=== PATIENT | male | born 1955 | race African-American/Black ===

== ENCOUNTER 2016-03-03 09:32 | Emergency (ER) | payer OTHER ==
[2016-03-03 09:40] VITALS: TEMP 98.6; BMI 28.9
[2016-03-03] MEDS ORDERED: HYDROmorphone 1 MG INJECTION IV ONE (10:37)
[2016-03-03] MEDS ORDERED: NS 1,000 ML IV ONE (10:37)
[2016-03-03] MEDS ORDERED: ONDANSETRON HCL 4 MG/2 ML VIAL IV ONE (10:37)
[2016-03-03] MEDS ORDERED: Pharmacy Review for Metformin - IV Contrast Given SCH (11:00)
[2016-03-03 11:08] LABS: AUTOMATED BASOPHIL 1.3 % (0-2); AUTOMATED EOSINOPHIL 3.7 % (0-5); AUTOMATED LYMPH 24.7 % (17-44); AUTOMATED MONOCYTE 8.7 % (3-10); AUTOMATED NEUTROPHIL 61.6 % (45-76); MPV 8.4 fL (7.4-10.4)
[2016-03-03 11:17] LABS: LEUKOCYTES/URINE NEG (NEGATIVE); NITRITE/URINE NEG (NEGATIVE); RBC/URINE 0-2 (0-2); URINE OCCULT BLOOD NEG (NEG/TRACE); WBC/URINE 0-2 (0-2)
[2016-03-03 11:18] LABS: BLOOD UREA NITROGEN 9 MG/DL (9-20); CALCIUM 9.4 MG/DL (8.4-10.2); CALCULATED OSMOLALITY 268 MOs/Kg (270-290); CHLORIDE 104 mEq/L (98-107); GLUCOSE 100 MG/DL (70-99); SODIUM LEVEL 140 mEq/L (137-146); TOTAL PROTEIN 7.7 G/DL (6.3-8.2)
--- NOTE | 2016-03-03 12:14 | DIRPT ---
CLINICAL DATA: Periumbilical pain for 1 day EXAM: CT ABDOMEN AND PELVIS WITH CONTRAST TECHNIQUE: Multidetector CT imaging of the abdomen and pelvis was performed using the standard protocol following bolus administration of intravenous contrast. CONTRAST: 100 mL Isovue 370 nonionic COMPARISON: June 05, 2015 ; September 20, 2011 FINDINGS: Lower chest: There is mild bibasilar lung atelectatic change. Lung bases otherwise are clear. Hepatobiliary: There is an apparent hemangioma in the medial segment of the left lobe of the liver measuring 1.2 x 1.2 cm. This lesion is unchanged compared to prior study. No new liver lesions are identified. Gallbladder wall is not appreciably thickened. There is no biliary duct dilatation. Pancreas: No pancreatic mass or inflammatory focus. Spleen: No splenic lesions are identified. Adrenals/Urinary Tract: Adrenals appear normal bilaterally. Kidneys bilaterally show no mass or hydronephrosis on either side. There is no renal or ureteral calculus apparent on either side. The urinary bladder is midline with wall thickness within normal limits. Stomach/Bowel: There is no bowel wall or mesenteric thickening. No bowel obstruction. No free air or portal venous air. Scattered diverticula are noted throughout the colon without diverticulitis. Vascular/Lymphatic: There is atherosclerotic calcification in the aorta and common iliac arteries bilaterally. There is slight peripheral thrombus in the aorta. There is no demonstrable abdominal aortic aneurysm. The major mesenteric vessels appear patent. There is no demonstrable adenopathy in the abdomen or pelvis. Reproductive: Prostate and seminal vesicles normal in size and contour. There are several small prostatic calculi. Other: Appendix is absent. There is again noted a mass just superior to the left inguinal region anteriorly measuring 3.1 x 2.2 x 1.5 cm. This mass is actually marginally smaller compared to the previous study. It is well-circumscribed and contains calcification. No other similar mass is seen in the abdomen or pelvis. There is no ascites or abscess in the abdomen or pelvis. Musculoskeletal: There is degenerative change in the lumbar spine. There are no blastic or lytic bone lesions. No intramuscular or abdominal wall lesions are apparent. IMPRESSION: There is a stable mass just superior to the left inguinal region anteriorly, currently measuring 3.1 x 2.2 x 1.5 cm. This lesion is unchanged in contour and contains calcification, unchanged from prior study. Note that it was not present on earlier study from 2011. Question partially calcified hematoma given that it appears marginally smaller compared to the previous study. Particular attention to this area on subsequent evaluations is warranted. Appendix absent. No bowel wall thickening or bowel obstruction. No abscess. No renal or ureteral calculus. No hydronephrosis. Small stable liver hemangioma. Electronically Signed By: Júnior Teague III, M.D. On: 03/03/2016 12:12
--- NOTE | 2016-03-03 12:20 | EDPRACDOC ---
- General Information Chief Complaint: Abdominal Pain Stated Complaint: ABD/ BACK PAIN Time Seen by Provider: 03/03/16 10:44 Mode Of Arrival: Car Home Medications: Home Medications Glipizide [Glucotrol] 10 mg PO BID(TK) 05/15/13 Aspirin [Aspirin EC] 81 mg PO DAILY 08/30/13 Lisinopril 40 mg PO DAILY 08/30/13 Tramadol HCl 50 mg PO Q6 PRN #10 tablet 03/03/16 Allergies/Adverse Reactions: Allergies Allergy/AdvReac Type Severity Reaction Status Date / Time promethazine HCl Allergy Intermediate Difficulty Verified 03/03/16 09:40 [From Phenergan] Breathing diphenhydramine HCl Allergy Mild Itching Verified 03/03/16 09:40 [From Benadryl] - History of Present Illness Onset: TODAY HPI: C/o sudden onset back, abdo and suprapubic pain today. Denies testicle or penis pain, fever, N/V/D, cp, sob, chnages in urine or BM. Med hx = DM, HTN. Surgical hx = appy, shoulder, back. Pain Location: Reports: Diffuse, Periumbilical, Suprapubic Pain Context: Reports: Spontaneous Pain Severity: Moderate Pain Quality: Reports: Cramping Pain Radiation: Reports: Back Adult Abdominal History: Reports: Abdominal Surgery Modifying Factors: improves with: Nothing Oral Intake: Normal Urinary Output: Normal ED Past Medical History - History Reviewed Yes Nurses notes reviewed and agree except as marked - Patient Medical History Cardiac History: Reports: Hypertension, Cardiac Catheterization, Hypercholesterolemia Respiratory History: Reports: Asthma, Chronic Bronchitis GI/ History: Reports: Gastroesophageal Reflux Musculoskeletal History: Reports: Arthritis (joints), Osteoarthritis Psychological History: Denies: Depression Systemic History: Reports: Diabetes (NIDDM) Surgical History: Reports: Cardiac Catheterization - Family Medical History Reports: Hypertension (mother), Diabetes (mother), Cancer (brother) - Social Medical History Smoking Status: Light tobacco smoker (less than 5/day) EDM Review of Systems - Review of Systems ROS Negative Except as Marked: Yes All systems reviewed and were negative except as marked Gastrointestinal: Pain Musculoskeletal: Back (mid back pain) - Physical Exam Constitutional: No apparent distress, Alert Oriented to: Time, Person, Place Last recorded Vital Signs: Last Vital Signs Temp 98.6 F 03/03/16 09:37 Pulse 83 03/03/16 12:58 Resp 18 03/03/16 12:58 BP 113/76 03/03/16 12:58 Pulse Ox 95 03/03/16 12:58 Oxygen Pulse Oxygen Saturation 95 O2 Device Room Air Oxygen Flow Rate Fraction of Inspired Oxygen ( FIO2) - HEENT Head: Normal Eye Exam: negative: Conjunctival Injection, Scleral Icterus Oropharynx: negative: Drooling TMJ: Normal Nose: No Symptoms Reported Neck: Normal - Respiratory/Cardiovascular Respiratory: Normal - CTA Cardiovascular: Normal - GI Auscultation: Normal Palpation: Normal Tenderness: Diffuse, Moderate, RUQ, LUQ, RLQ, LLQ, Epigastric, Suprapubic, Periumbilical Madrid's Sign: Negative - Musculoskeletal Back: Normal Extremities: Normal - Integumentary Skin: Normal - Neurologic Mood Description: Normal Thought: Coherent Perception: Normal - Results 03/03/16 10:55 03/03/16 10:55 WBC 7.5 xk/uL (3.8-10.8) 03/03/16 10:55 RBC 4.99 xM/uL (4.70-6.10) 03/03/16 10:55 Hgb 14.4 g/dL (14.0-18.0) 03/03/16 10:55 Hct 43.2 % (42-52) 03/03/16 10:55 MCV 87 fL (80-94) 03/03/16 10:55 MCH 28.9 pg (27-32) 03/03/16 10:55 MCHC 33.4 g/dl (33-36) 03/03/16 10:55 RDW 13.7 % (11.5-14.5) 03/03/16 10:55 Plt Count 140 xk/uL (130-400) 03/03/16 10:55 MPV 8.4 fL (7.4-10.4) 03/03/16 10:55 Neut % (Auto) 61.6 % (45-76) 03/03/16 10:55 Lymph % (Auto) 24.7 % (17-44) 03/03/16 10:55 [place] % (Auto) 8.7 % (3-10) 03/03/16 10:55 Eos % (Auto) 3.7 % (0-5) 03/03/16 10:55 Baso % (Auto) 1.3 % (0-2) 03/03/16 10:55 Absolute Neuts (auto) 4.58 xk/uL (1.7-8.2) 03/03/16 10:55 Absolute Lymphs (auto) 1.80 xk/uL (0.65-4.75) 03/03/16 10:55 Sodium 140 mEq/L (137-146) 03/03/16 10:55 Potassium 4.2 mEq/L (3.5-5.1) 03/03/16 10:55 Chloride 104 mEq/L (98-107) 03/03/16 10:55 Carbon Dioxide 29 mMOL/L (22-33) 03/03/16 10:55 Anion Gap 11 mEq/L (8-16) 03/03/16 10:55 BUN 9 MG/DL (9-20) 03/03/16 10:55 Creatinine 0.80 MG/DL (0.66-1.25) 03/03/16 10:55 Estimated GFR (MDRD) > 60 mL/min (>=60) 03/03/16 10:55 Glucose 100 MG/DL (70-99) H 03/03/16 10:55 Calculated Osmolality 268 MOs/Kg (270-290) L 03/03/16 10:55 Calcium 9.4 MG/DL (8.4-10.2) 03/03/16 10:55 Total Bilirubin 0.6 MG/DL (0.2-1.3) 03/03/16 10:55 AST 25 IU/L (17-59) 03/03/16 10:55 ALT 37 IU/L (21-72) 03/03/16 10:55 Alkaline Phosphatase 62 IU/L (50-160) 03/03/16 10:55 Total Protein 7.7 G/DL (6.3-8.2) 03/03/16 10:55 Albumin 4.2 G/DL (3.5-5.0) 03/03/16 10:55 Lipase 59 U/L (23-300) 03/03/16 10:55 Urine Color Yellow 03/03/16 11:00 Urine Clarity Clear 03/03/16 11:00 Urine pH 8.0 (5.0-8.0) 03/03/16 11:00 Ur Specific [place] 1.010 (1.003-1.035) 03/03/16 11:00 Urine Protein Neg (NEG/TRACE) 03/03/16 11:00 Urine Glucose (UA) Neg (NEGATIVE) 03/03/16 11:00 Urine Ketones Neg (NEGATIVE) 03/03/16 11:00 Urine Occult Blood Neg (NEG/TRACE) 03/03/16 11:00 Urine Nitrite Neg (NEGATIVE) 03/03/16 11:00 Urine Bilirubin Neg (NEGATIVE) 03/03/16 11:00 Urine Urobilinogen <2.0 MG/DL (0-1) 03/03/16 11:00 Ur Leukocyte Esterase Neg (NEGATIVE) 03/03/16 11:00 Urine RBC 0-2 (0-2) 03/03/16 11:00 Urine WBC 0-2 (0-2) 03/03/16 11:00 Lab Results 03/03/16 03/03/16 03/03/16 11:00 10:55 10:55 WBC 7.5 RBC 4.99 Hgb 14.4 Hct 43.2 MCV 87 MCH 28.9 MCHC 33.4 RDW 13.7 Plt Count 140 MPV 8.4 Neut % (Auto) 61.6 Lymph % (Auto) 24.7 [place] % (Auto) 8.7 Eos % (Auto) 3.7 Baso % (Auto) 1.3 Absolute Neuts (auto) 4.58 Absolute Lymphs (auto) 1.80 Sodium 140 Potassium 4.2 Chloride 104 Carbon Dioxide 29 Anion Gap 11 BUN 9 Creatinine 0.80 Estimated GFR (MDRD) > 60 Glucose 100 H Calculated Osmolality 268 L Calcium 9.4 Total Bilirubin 0.6 AST 25 ALT 37 Alkaline Phosphatase 62 Total Protein 7.7 Albumin 4.2 Lipase 59 Urine Color Yellow Urine Clarity Clear Urine pH 8.0 Ur Specific [place] 1.010 Urine Protein Neg Urine Glucose (UA) Neg Urine Ketones Neg Urine Occult Blood Neg Urine Nitrite Neg Urine Bilirubin Neg Urine Urobilinogen <2.0 Ur Leukocyte Esterase Neg Urine RBC 0-2 Urine WBC 0-2 - Diagnostic Imaging Abdomen Image interpreted by: Radiologist 03/03/16 12:18 EXAM: CT ABDOMEN AND PELVIS WITH CONTRAST TECHNIQUE: Multidetector CT imaging of the abdomen and pelvis was performed using the standard protocol following bolus administration of intravenous contrast. CONTRAST: 100 mL Isovue 370 nonionic COMPARISON: June 05, 2015 ; September 20, 2011 FINDINGS: Lower chest: There is mild bibasilar lung atelectatic change. Lung bases otherwise are clear. Hepatobiliary: There is an apparent hemangioma in the medial segment of the left lobe of the liver measuring 1.2 x 1.2 cm. This lesion is unchanged compared to prior study. No new liver lesions are identified. Gallbladder wall is not appreciably thickened. There is no biliary duct dilatation. Pancreas: No pancreatic mass or inflammatory focus. Spleen: No splenic lesions are identified. Adrenals/Urinary Tract: Adrenals appear normal bilaterally. Kidneys bilaterally show no mass or hydronephrosis on either side. There is no renal or ureteral calculus apparent on either side. The urinary bladder is midline with wall thickness within normal limits. Stomach/Bowel: There is no bowel wall or mesenteric thickening. No bowel obstruction. No free air or portal venous air. Scattered diverticula are noted throughout the colon without diverticulitis. Vascular/Lymphatic: There is atherosclerotic calcification in the aorta and common iliac arteries bilaterally. There is slight peripheral thrombus in the aorta. There is no demonstrable abdominal aortic aneurysm. The major mesenteric vessels appear patent. There is no demonstrable adenopathy in the abdomen or pelvis. Reproductive: Prostate and seminal vesicles normal in size and contour. There are several small prostatic calculi. Other: Appendix is absent. There is again noted a mass just superior to the left inguinal region anteriorly measuring 3.1 x 2.2 x 1.5 cm. This mass is actually marginally smaller compared to the previous study. It is well-circumscribed and contains calcification. No other similar mass is seen in the abdomen or pelvis. There is no ascites or abscess in the abdomen or pelvis. Musculoskeletal: There is degenerative change in the lumbar spine. There are no blastic or lytic bone lesions. No intramuscular or abdominal wall lesions are apparent. IMPRESSION: There is a stable mass just superior to the left inguinal region anteriorly, currently measuring 3.1 x 2.2 x 1.5 cm. This lesion is unchanged in contour and contains calcification, unchanged from prior study. Note that it was not present on earlier study from 2011. Question partially calcified hematoma given that it appears marginally smaller compared to the previous study. Particular attention to this area on subsequent evaluations is warranted. Appendix absent. No bowel wall thickening or bowel obstruction. No abscess. No renal or ureteral calculus. No hydronephrosis. Small stable liver hemangioma. Electronically Signed By: Júnior Teague III, M.D. On: 03/03/2016 12:12 Decision Time to Discharge: 12:23 - Departure Disposition: Home Condition: Stable Final Diagnosis: Abdominal pain Qualifiers: Abdominal location: unspecified location Qualified Code(s): R10.9 - Unspecified abdominal pain Back pain Qualifiers: Back pain location: back pain in unspecified location Chronicity: acute Back pain laterality: bilateral Qualified Code(s): M54.9 - Dorsalgia, unspecified Instructions: Non-pharmacological Pain Management Therapies for Adults (GEN), Abdominal Pain (ED), Core Strengthening Exercises (GEN), Back Pain Education/Counseling Given To: Patient Education/Counseling Given Regarding: Diagnosis, Treatment, Prognosis, Follow Up Referrals: Therese Harkins MD [Primary Care Provider] - One Week Prescriptions: New Tramadol HCl 50 mg PO Q6 PRN #10 tablet PRN Reason: Pain No Action Glipizide [Glucotrol] 10 mg PO BID(TK) Aspirin [Aspirin EC] 81 mg PO DAILY Lisinopril 40 mg PO DAILY Forms: Excuse Note Additional Instructions: Follow up with primary care for abdominal and back pain. Take tramadol for pain. Return to ED for any new or worsening symptoms.
[2016-03-03 13:00] VITALS: BP 113/76; PULSE 83
== END 2016-03-03 12:58 | disposition home or self-care (01) ==
LOC: ED 09:32
DX: R10.9 Unspecified abdominal pain (principal); M54.9 Dorsalgia, unspecified; I10 Essential (primary) hypertension; E78.00 Pure hypercholesterolemia, unspecified; K21.9 Gastro-esophageal reflux disease without esophagitis; E11.9 Type 2 diabetes mellitus without complications; F17.210 Nicotine dependence, cigarettes, uncomplicated; Z79.82 Long term (current) use of aspirin; Z79.899 Other long term (current) drug therapy
CPT/HCPCS: 36415; 74177; 80053; 81001; 83690; 85025; 96361; 96374; 96375; 99284; A9698; J1170; J2405